=== PATIENT | female | born 1950 | race Caucasian/White ===

== ENCOUNTER → 2016-06-09 | Outpatient (CLI) | payer MEDICARE ==
[~2016-06-09] MED LIST: CLONOPIN; DIOVAN; ESTROGEN; LASIX; MIRALAX
--- NOTE | 2016-06-09 08:09 | DI ---
EXAM: US THYROID LOCATION OF DICTATION: [facility] HISTORY: ITS.REASON: E04.1 Nontoxic single thyroid nodule COMPARISON: No prior studies available for comparison. FINDINGS: The right thyroid lobe measures 4.6 x 1.9 x 1.6 cm. The left thyroid lobe measures 4.9 x 1.5 x 1.7 cm. There is a small isoechoic nodule within the left thyroid lobe demonstrating a hypoechoic halo likely reflecting a small thyroid adenoma measuring 1.0 x 0.6 x 0.8 cm. No abnormal soft tissues masses or fluid collections are seen around the thyroid. IMPRESSION: Small 1.0 cm nodule within the left thyroid lobe. Recommend a follow-up thyroid ultrasound in one year to document stability. The thyroid gland is otherwise unremarkable. .
== END ==
LOC: IMA 07:18
PROVIDERS: ATTEND Family Medicine
DX: E04.1 Nontoxic single thyroid nodule (principal)

== ENCOUNTER → 2016-07-09 | Outpatient (CLI) | payer MEDICARE ==
--- NOTE | 2016-07-09 08:29 | DI ---
Indication: ITS.REASON: H34.9 Unspecified retinal vascular occlusion PROCEDURE: US CAROTID DOPP COMPLETE: TECHNIQUE: Grayscale, color and duplex Doppler imaging was performed of the carotid systems bilaterally. Velocities in cm/sec - validated velocity measurements with angiographic measurements, velocity criteria are extrapolated from diameter data as defined by the Society of Radiologists in Ultrasound Consensus Conference Radiology 2003; 229;340-346. RIGHT: PSV ICA 83 EDV ICA 24 PSV CCA 101 EDV CCA 18 SVR 0.80 PSV ECA 93 ICA Diameter reduction 0% (<0.8)% LEFT: PSV ICA 92 EDV ICA 14 PSV CCA 103 EDV CCA 14 SVR 0.90 PSV ECA 107 ICA Diameter reduction 0% (<0.8)% The right vertebral artery is patent with cephalic flow. The left vertebral artery is patent with cephalic flow. No significant plaque burden. IMPRESSION: No hemodynamically significant carotid stenosis. .
== END ==
LOC: IMA 07:41
PROVIDERS: ATTEND Family Medicine
DX: H34.9 Unspecified retinal vascular occlusion (principal)